=== PATIENT | female | born 1975 | race American Indian/Alaskan Native ===

== ENCOUNTER 2016-11-23 21:51 | Emergency (ER) | payer BC ==
[2016-11-23 23:29] LABS: Hematocrit 37.3 % (30.3-42.9); Hemoglobin 12.1 gm/dl (10.1-14.3); Mean Corpuscular HGB Conc 33 % (30-34); Mean Corpuscular Volume 71 fl (79-97); Platelet Count 279 K/mm3 (140-440); Red Blood Count 5.24 M/mm3 (3.65-5.03); Red Cell Distribution Width 18.3 % (13.2-15.2); White Blood Count 6.1 K/mm3 (4.5-11.0)
[2016-11-23 23:37] LABS: Mean Corpuscular Hemoglobin 23 pg (28-32)
[2016-11-23 23:45] LABS: Anion Gap 17 mmol/L; BUN/Creatinine Ratio 16.25; Blood Urea Nitrogen 13 mg/dL (7-17); Calcium 8.9 mg/dL (8.4-10.2); Carbon Dioxide 23 mmol/L (22-30); Glucose 331 mg/dL (65-100); Potassium 3.7 mmol/L (3.6-5.0); Sodium 138 mmol/L (137-145)
[2016-11-24] MEDS ORDERED: MOTRIN PO ONE (00:30)
--- NOTE | 2016-11-24 00:31 | Emergency Department Report ---
ED General Adult HPI - General Chief complaint: High BP Stated complaint: SINUSES Time Seen by Provider: 11/24/16 00:19 Source: patient, RN notes reviewed, old records reviewed Mode of arrival: Ambulatory Limitations: No Limitations - History of Present Illness Initial comments: This is a 41-year-old female. She is previously unknown to me. She reports a past medical history of hypertension and hypothyroidism. She takes Norvasc, Synthroid, triamterene. She reports her primary care doctor is at the [facility]. She presents to the ER with 5-7 days of facial fullness, and congestion, runny nose. There is no headache, neck pain, chest pain, abdominal pain or shortness of breath. There is no vomiting or diaphoresis. She endorses compliance with her medications. No other complaints. -: Gradual Location: face Quality: aching Consistency: intermittent Improves with: rest Worsens with: movement Associated Symptoms: denies: confusion, chest pain, diaphoresis, fever/chills, loss of appetite, malaise, nausea/vomiting, shortness of breath, syncope, weakness - Related Data Previous Rx's Medication Instructions Recorded Last Taken Type HYDROcodone/APAP 5-325 [[place] 1 each PO Q6HR PRN #7 tablet 04/30/14 Unknown Rx 5-325 mg TAB] Levofloxacin [Levaquin] 500 mg PO QDAY #7 tablet 04/30/14 Unknown Rx Fluticasone [Flonase] 1 spray NS QDAY #1 bottle 11/24/16 Unknown Rx Ibuprofen [Motrin] 600 mg PO Q8H PRN #30 tablet 11/24/16 Unknown Rx Loratadine [Claritin] 10 mg PO DAILY #30 tablet 11/24/16 Unknown Rx Allergies Allergy/AdvReac Type Severity Reaction Status Date / Time Sulfa (Sulfonamide Allergy Hives Verified 04/30/14 13:11 Antibiotics) ED Review of Systems ROS: Stated complaint: SINUSES Other details as noted in HPI ED Past Medical Hx - Past Medical History Hx Hypertension: Yes Additional medical history: hypothyroid - Surgical History Past Surgical History?: Yes Additional Surgical History: - Social History Smoking Status: Never Smoker Substance Use Type: None - Medications Home Medications: Home Medications Medication Instructions Recorded Confirmed Last Taken Type HYDROcodone/APAP 5-325 [[place] 1 each PO Q6HR PRN #7 tablet 04/30/14 Unknown Rx 5-325 mg TAB] Levofloxacin [Levaquin] 500 mg PO QDAY #7 tablet 04/30/14 Unknown Rx Fluticasone [Flonase] 1 spray NS QDAY #1 bottle 11/24/16 Unknown Rx Ibuprofen [Motrin] 600 mg PO Q8H PRN #30 tablet 11/24/16 Unknown Rx Loratadine [Claritin] 10 mg PO DAILY #30 tablet 11/24/16 Unknown Rx ED Physical Exam - General Limitations: No Limitations General appearance: alert, in no apparent distress - Head Head exam: Present: atraumatic, normocephalic - Eye Eye exam: Present: normal appearance, PERRL, EOMI. Absent: nystagmus - ENT ENT exam: Present: normal exam, normal orophraynx, mucous membranes moist, TM's normal bilaterally, normal external ear exam - Neck Neck exam: Present: normal inspection, full ROM. Absent: tenderness, meningismus - Respiratory Respiratory exam: Present: normal lung sounds bilaterally. Absent: respiratory distress, wheezes, rales, rhonchi, stridor, chest wall tenderness, accessory muscle use, decreased breath sounds, prolonged expiratory - Cardiovascular Cardiovascular Exam: Present: regular rate, normal rhythm, normal heart sounds. Absent: systolic murmur, diastolic murmur, rubs, gallop - GI/Abdominal GI/Abdominal exam: Present: soft, normal bowel sounds. Absent: distended, tenderness, guarding, rebound, rigid, pulsatile mass - Extremities Exam Extremities exam: Present: normal inspection, full ROM. Absent: calf tenderness - Back Exam Back exam: Present: normal inspection. Absent: tenderness, paraspinal tenderness, vertebral tenderness - Neurological Exam Neurological exam: Present: alert, oriented X3, normal gait, other (Extraocular movements intact. Tongue midline. No facial droop. Facial sensation intact to light touch in the V1, V2, V3 distribution bilaterally. 5 and 5 strength in 4 extremities.. Sensation is intact to light touch in 4 extremities.). Absent : motor sensory deficit - Psychiatric Psychiatric exam: Present: normal affect, normal mood - Skin Skin exam: Present: warm, dry, intact, normal color. Absent: rash ED Course Vital Signs 11/23/16 11/24/16 22:27 00:36 Temperature 98.4 F 98.1 F Pulse Rate 96 H 84 Respiratory 16 16 Rate Blood Pressure 189/117 Blood Pressure 181/105 [Right] O2 Sat by Pulse 95 97 Oximetry ED Medical Decision Making - Lab Data Result diagrams: 11/23/16 23:05 11/23/16 23:05 Vital Signs 11/23/16 11/24/16 22:27 00:36 Temperature 98.4 F 98.1 F Pulse Rate 96 H 84 Respiratory 16 16 Rate Blood Pressure 189/117 Blood Pressure 181/105 [Right] O2 Sat by Pulse 95 97 Oximetry Labs 11/23/16 11/23/16 23:05 23:05 WBC 6.1 RBC 5.24 H Hgb 12.1 Hct 37.3 MCV 71 L MCH 23 L MCHC 33 RDW 18.3 H Plt Count 279 Seg Neutrophils % [employer] Sodium 138 Potassium 3.7 Chloride 102.0 Carbon Dioxide 23 Anion Gap 17 BUN 13 Creatinine 0.8 Estimated GFR > 60 BUN/Creatinine Ratio 16.25 Glucose 331 H Calcium 8.9 Troponin T < 0.010 - EKG Data -: EKG Interpreted by Me - EKG Data 11/24/16 00:38 normal sinus, 93 bpm, normal axis, QTC 489 ms, abnormal EKG, poor R-wave progression, not morphologically consistent with STEMI, nonspecific changes when compared to prior EKG from 2013. - Medical Decision Making Differential diagnosis: Sinusitis, hypertension, hyperglycemia, poorly controlled blood pressure Assessment and plan: 41-year-old female with almost a week of facial fullness. She is afebrile with reassuring vital signs with the exception of hypertension. She does not have chest pain, shortness of breath, nausea, vomiting or diaphoresis, and she has a normal neurologic examination. She is found incidentally to have asymptomatic hypertension and hyperglycemia. As per the [employer] clinical policy on asymptomatic hypertension: 1. Are ED blood pressure readings accurate and reliable for screening asymptomatic patients for hypertension? Level A recommendations. None specified. Level B recommendations. If blood pressure measurements are persistently elevated with a systolic blood pressure greater than 140 mm Hg or diastolic blood pressure greater than 90 mm Hg, the patient should be referred for follow- up of possible hypertension and blood pressure management. Level C recommendations. Patients with a single elevated blood pressure reading may require further screening for hypertension in the outpatient setting. 2. Do asymptomatic patients with elevated blood pressures benefit from rapid lowering of their blood pressure? Level A recommendations. None specified. Level B recommendations. (1) Initiating treatment for asymptomatic hypertension in the ED is not necessary when patients have follow-up; (2) Rapidly lowering blood pressure in asymptomatic patients in the ED is unnecessary and may be harmful in some patients; (3) When ED treatment for asymptomatic hypertension is initiated, blood pressure management should attempt to gradually lower blood pressure and should not be expected to be normalized during the initial ED visit. Level C recommendations. None specified. This is most likely a chronic problem, and the patient will not medically benefit from acute intervention. Under similar note, the patient's hyperglycemia does not require acute intervention as she does not have anion gap acidosis. She felt improved after ibuprofen, and she is instructed to follow-up with an outpatient primary care doctor for her chronic medical conditions. Troponin is sent prior to my evaluation, but given the patient's history and physical, I don't believe the patient requires evaluation for acute coronary syndrome. On a similar note, her EKG was obtained in triage secondary to her a medic hypertension. Her EKG is abnormal, but as she is not having symptoms, she is suitable follow-up and outpatient primary care doctor or [employer] for this. Critical care attestation.: If time is entered above; I have spent that time in minutes in the direct care of this critically ill patient, excluding procedure time. ED Disposition Clinical Impression: Facial pressure, Elevated blood pressure reading, Hyperglycemia Disposition: DC-01 TO HOME OR SELFCARE Is pt being admited?: No Does the pt Need Aspirin: No Condition: Stable Additional Instructions: Take the medications as directed and needed. Please follow up with her primary care doctor or [employer] for hypertension, elevated blood pressure. Follow up within the next 2 weeks. Please note that complications of hypertension, elevated blood pressure includes stroke, heart attack, disability, , paralysis, loss of quality of life. Follow-up with your primary care doctor for elevated blood sugar. Take the medications as directed. Return to the ER right away with fevers, chills, chest pain, shortness of breath, nausea, vomiting, confusion, inability to tolerate liquid feeds. Referrals: PRIMARY AKIRA, [Primary Care Provider] - 3-5 Days VLADIMIR NOLAN MD [Staff Physician] - 3-5 Days ANTONIA ROCHA MD [Staff Physician] - 3-5 Days
[2016-11-24 00:38] VITALS: BP 181/105
[2016-11-24 01:39] LABS: Basophils % (Manual) 0 % (0.0-1.8); Blastocytes % (Manual) 0 %; Diff Status Complete; Hypochromasia 1+
== END 2016-11-24 00:45 | disposition home or self-care (01) ==
LOC: ED 21:51
DX: I10 Essential (primary) hypertension (principal); R73.9 Hyperglycemia, unspecified
CPT/HCPCS: 36415; 80048; 84484; 85007; 85025; 93005; 93010

== ENCOUNTER 2018-11-03 17:40 | Emergency (ER) | payer BC ==
[2018-11-03 18:27] VITALS: BP 142/93
--- NOTE | 2018-11-03 22:49 | Emergency Department Report ---
ED General Adult HPI - General Chief complaint: Sore Throat Stated complaint: SORE THROAT/SINUS Time Seen by Provider: 11/03/18 21:00 Source: patient Mode of arrival: Ambulatory Limitations: No Limitations - History of Present Illness Initial comments: Patient is a 43 yo AA female with a h/o NIDDM and HTN who presents to the ED with c/o acute onset persistent nasal and sinus congestion, dry cough, with frontal sinus pressure and headache x 3 days. Patient states that most of her family members have had similar symptoms. Patient denies dyspnea, chest pain, dizziness, fever, abdominal pain, nausea, vomiting, diarrhea or dysuria. MD Complaint: sore throat, nasal and sinus congestion -: Sudden, days(s) (3) Location: head Radiation: non-radiation Severity scale (0 -10): 6 Quality: aching Consistency: constant Improves with: none Worsens with: none Associated Symptoms: cough, headaches. denies: confusion, chest pain, fever/chills, malaise, nausea/vomiting, rash, seizure, shortness of breath, syncope, weakness Treatments Prior to Arrival: none - Related Data Previous Rx's Medication Instructions Recorded Last Taken Type HYDROcodone/APAP 5-325 [[place] 1 each PO Q6HR PRN #7 tablet 04/30/14 Unknown Rx 5-325 mg TAB] levoFLOXacin [Levaquin] 500 mg PO QDAY #7 tablet 04/30/14 Unknown Rx Fluticasone [Flonase] 1 spray NS QDAY #1 bottle 11/24/16 Unknown Rx Ibuprofen [Motrin] 600 mg PO Q8H PRN #30 tablet 11/24/16 Unknown Rx Loratadine [Claritin] 10 mg PO DAILY #30 tablet 11/24/16 Unknown Rx Ibuprofen [Motrin] 800 mg PO Q8HR PRN #12 tablet 04/13/18 Unknown Rx cephALEXin [Keflex] 500 mg PO Q8HR 7 Days #14 cap 04/13/18 Unknown Rx Cetirizine HCl [ZyrTEC 10mg cap] 10 mg PO DAILY #30 capsule 11/03/18 Unknown Rx Fluticasone [Flonase] 1 spray NS QDAY #1 bottle 11/03/18 Unknown Rx Ibuprofen [Motrin] 800 mg PO Q8HR PRN #20 tablet 11/03/18 Unknown Rx Penicillin V Potassium 500 mg PO Q6H #40 tablet 11/03/18 Unknown Rx Allergies Allergy/AdvReac Type Severity Reaction Status Date / Time Sulfa (Sulfonamide Allergy Hives Verified 04/30/14 13:11 Antibiotics) ED Review of Systems ROS: Stated complaint: SORE THROAT/SINUS Other details as noted in HPI Constitutional: no symptoms reported. denies: chills, fever Eyes: denies: eye pain, eye discharge, vision change ENT: throat pain, congestion. denies: ear pain Respiratory: no symptoms reported. denies: cough, shortness of breath, SOB with exertion, SOB at rest, wheezing Cardiovascular: denies: chest pain, palpitations, edema Endocrine: no symptoms reported Gastrointestinal: denies: abdominal pain, nausea, diarrhea Genitourinary: denies: urgency, dysuria, discharge Musculoskeletal: denies: back pain, joint swelling, arthralgia Skin: denies: rash, lesions Neurological: denies: headache, weakness, paresthesias Psychiatric: denies: anxiety, depression Hematological/Lymphatic: denies: easy bleeding, easy bruising ED Past Medical Hx - Past Medical History Previous Medical History?: Yes Hx Hypertension: Yes Hx Diabetes: Yes Additional medical history: hypothyroid, Report pre diabetes - Surgical History Past Surgical History?: Yes Additional Surgical History: - Social History Smoking Status: Never Smoker Substance Use Type: None - Medications Home Medications: Home Medications Medication Instructions Recorded Confirmed Last Taken Type HYDROcodone/APAP 5-325 [[place] 1 each PO Q6HR PRN #7 tablet 04/30/14 Unknown Rx 5-325 mg TAB] levoFLOXacin [Levaquin] 500 mg PO QDAY #7 tablet 04/30/14 Unknown Rx Fluticasone [Flonase] 1 spray NS QDAY #1 bottle 11/24/16 Unknown Rx Ibuprofen [Motrin] 600 mg PO Q8H PRN #30 tablet 11/24/16 Unknown Rx Loratadine [Claritin] 10 mg PO DAILY #30 tablet 11/24/16 Unknown Rx Ibuprofen [Motrin] 800 mg PO Q8HR PRN #12 tablet 04/13/18 Unknown Rx cephALEXin [Keflex] 500 mg PO Q8HR 7 Days #14 cap 04/13/18 Unknown Rx Cetirizine HCl [ZyrTEC 10mg cap] 10 mg PO DAILY #30 capsule 11/03/18 Unknown Rx Fluticasone [Flonase] 1 spray NS QDAY #1 bottle 11/03/18 Unknown Rx Ibuprofen [Motrin] 800 mg PO Q8HR PRN #20 tablet 11/03/18 Unknown Rx Penicillin V Potassium 500 mg PO Q6H #40 tablet 11/03/18 Unknown Rx ED Physical Exam - General Limitations: No Limitations General appearance: alert, in no apparent distress - Head Head exam: Present: atraumatic, normocephalic, normal inspection - Eye Eye exam: Present: normal appearance, PERRL, EOMI. Absent: scleral icterus Pupils: Present: normal accommodation - ENT ENT exam: Present: normal exam, normal orophraynx, mucous membranes moist, TM's normal bilaterally, normal external ear exam, other (Grossly congested nasal passages; tenderness on maxillary sinuses) - Neck Neck exam: Present: normal inspection, full ROM - Respiratory Respiratory exam: Present: normal lung sounds bilaterally. Absent: respiratory distress, wheezes, rales, rhonchi, chest wall tenderness, accessory muscle use, decreased breath sounds, prolonged expiratory - Cardiovascular Cardiovascular Exam: Present: normal rhythm, tachycardia, normal heart sounds. Absent: systolic murmur, diastolic murmur, rubs, gallop - GI/Abdominal GI/Abdominal exam: Present: soft, normal bowel sounds. Absent: distended, tenderness, guarding, hyperactive bowel sounds, hypoactive bowel sounds, organomegaly, mass - Rectal Rectal exam: Present: deferred - Extremities Exam Extremities exam: Present: normal inspection, full ROM, normal capillary refill - Back Exam Back exam: Present: normal inspection, full ROM. Absent: tenderness, CVA tenderness (R), CVA tenderness (L), muscle spasm, paraspinal tenderness - Neurological Exam Neurological exam: Present: alert, oriented X3, CN II-XII intact, normal gait, reflexes normal - Psychiatric Psychiatric exam: Present: normal affect, normal mood - Skin Skin exam: Present: warm, dry, intact, normal color. Absent: rash ED Course Vital Signs 11/03/18 18:26 Temperature 98.9 F Pulse Rate 104 H Respiratory 16 Rate Blood Pressure 142/93 O2 Sat by Pulse 96 Oximetry - Reevaluation(s) Reevaluation #1: 11/03/18 22:55 Patient is alert and oriented 3 and is not in distress. Patient was discharged home on medications and empirically treated for acute maxillary sinusitis. Patient advised to follow-up with her primary care physician in 7-10 days for reevaluation or return to the ED immediately if symptoms get worse. ED Medical Decision Making - Medical Decision Making Patient is alert and oriented 3 and is not in distress. Patient was discharged home on medications and empirically treated for acute maxillary sinusitis. Patient advised to follow-up with her primary care physician in 7-10 days for reevaluation or return to the ED immediately if symptoms get worse. - Differential Diagnosis acute maxillary sinusitis; acuet URI; Acute pharyngitis Critical care attestation.: If time is entered above; I have spent that time in minutes in the direct care of this critically ill patient, excluding procedure time. ED Disposition Clinical Impression: Acute upper respiratory infection Acute pharyngitis Qualifiers: Pharyngitis/tonsillitis etiology: unspecified etiology Qualified Code(s): J02.9 - Acute pharyngitis, unspecified Acute maxillary sinusitis Qualifiers: Recurrence: non-recurrent Qualified Code(s): J01.00 - Acute maxillary s inusitis, unspecified Disposition: DC-01 TO HOME OR SELFCARE Is pt being admited?: No Does the pt Need Aspirin: No Condition: Stable Instructions: Sinusitis (ED), Upper Respiratory Infection (ED) Additional Instructions: TAKE MEDICATIONS WITH FOOD, DRINK PLENTY OF FLUIDS AND FOLLOW UP WITH YOUR PRIMARY CARE PHYSICIAN IN 7-10 DAYS. RETURN TO THE ED IMMEDIATELY IF SYMPTOMS GET WORSE. Prescriptions: Fluticasone [Flonase] 1 spray NS QDAY #1 bottle Ibuprofen [Motrin] 800 mg PO Q8HR PRN #20 tablet PRN Reason: Pain , Severe (7-10) Penicillin V Potassium 500 mg PO Q6H #40 tablet Cetirizine HCl [ZyrTEC 10mg cap] 10 mg PO DAILY #30 capsule Referrals: [facility] [Outside] - 3-5 Days Time of Disposition: 22:48 Print Language: MOHAWK
== END 2018-11-03 22:57 | disposition home or self-care (01) ==
LOC: ED 17:40
DX: J06.9 Acute upper respiratory infection, unspecified (principal); J20.9 Acute bronchitis, unspecified; J01.00 Acute maxillary sinusitis, unspecified; I10 Essential (primary) hypertension; E11.9 Type 2 diabetes mellitus without complications; E03.9 Hypothyroidism, unspecified; Z88.2 Allergy status to sulfonamides; Z79.1 Long term (current) use of non-steroidal anti-inflammatories (NSAID); Z79.899 Other long term (current) drug therapy
CPT/HCPCS: 99282

== ENCOUNTER 2019-02-09 18:08 | Emergency (ER) | payer BC, OTHER ==
--- NOTE | 2019-02-09 18:43 | Emergency Department Report ---
Blank Doc - Documentation Documentation: 43-year-old female that presents with URI symptoms. Patient also stated has not been taking her B/P medications. Denies any headache or any other symptoms. This initial assessment/diagnostic orders/clinical plan/treatment(s) is/are subject to change based on patient's health status, clinical progression and re- assessment by fellow clinical providers in the ED. Further treatment and workup at subsequent clinical providers discretion. Patient/guardians urged not to elope from the ED as their condition may be serious if not clinically assessed and managed. Initial orders include: 1- Patient sent to [facility] for further evaluation and treatment 2- labs 3- CXR
[2019-02-09 19:41] LABS: Basophils # (Auto) 0.1 K/mm3 (0.0-0.1); Basophils % (Auto) 1.6 % (0.0-1.8); Eosinophils # (Auto) 0.2 K/mm3 (0.0-0.4); Eosinophils % (Auto) 3.4 % (0.0-4.3); Hemoglobin 8.8 gm/dl (10.1-14.3); Lymphocytes # (Auto) 2.3 K/mm3 (1.2-5.4); Lymphocytes % (Auto) 36.6 % (13.4-35.0); Mean Corpuscular HGB Conc 31 % (30-34); Monocytes # (Auto) 0.6 K/mm3 (0.0-0.8); Platelet Count 343 K/mm3 (140-440); Red Blood Count 4.47 M/mm3 (3.65-5.03); Red Cell Distribution Width 16.9 % (13.2-15.2)
[2019-02-09 19:52] LABS: BUN/Creatinine Ratio 20; Blood Urea Nitrogen 16 mg/dL (7-17); Hemolysis Index 1
[2019-02-09 19:57] LABS: Mean Corpuscular Volume 63 fl (79-97)
--- NOTE | 2019-02-09 20:01 | XRay Report ---
CHEST 2 VIEWS INDICATION / CLINICAL INFORMATION: cough. COMPARISON: 04/30/2014 FINDINGS: SUPPORT DEVICES: None. HEART / MEDIASTINUM: No significant abnormality. LUNGS / PLEURA: No significant pulmonary or pleural abnormality. .No pneumothorax. ADDITIONAL FINDINGS: No significant additional findings. IMPRESSION: 1. No acute findings. Signer Name: Srinivasa Orozco MD Signed: 02/09/2019 7:57 PM Workstation Name: [id number]
[2019-02-09] MEDS ORDERED: ASPIRIN 325 MG TAB PO ONE (20:47)
--- NOTE | 2019-02-09 20:50 | Emergency Department Report ---
- General Chief Complaint: Chest Pain Stated Complaint: COUGH/RUNNY NOISE/VOMITING Time Seen by Provider: 02/09/19 18:42 Source: patient Mode of arrival: Ambulatory Limitations: No Limitations - History of Present Illness Initial Comments: Patient is a 43-year-old -Mosoth[place] female with a history of [id number]-[id number] diabetes, hypertension and hypothyroidism and who is noncompliant with medications presents to the ED with complaint of acute onset persistent nasal and sinus congestion, frontal sinus pressure, sore throat, dry cough and pleuritic chest pain with intermittent shortness of breath for the last 2 or 3 months, worse in the last 1 week. Patient states that she stopped taking some of her blood pressure medications and diabetes medication about one month ago but that her symptoms of worsened. Patient denies fever, chills, nausea, vomiting, dizziness, syncope, palpitations, abdominal pain, diarrhea, dysuria, urinary frequency and urgency or loss of consciousness or dizziness. MD Complaint: cough, sore throat, rhinorrhea, nasal congestion -: Sudden, month(s) (3) Severity: moderate Severity scale (0 -10): 5 Quality: sharp, aching Consistency: constant Improves With: nothing Worsens With: nothing Associated Symptoms: denies other symptoms, headache, rhinorrhea, nasal congestion, sore throat, cough, chest pain. denies: fever, chills, myalgias, diaphoresis, abdominal pain, nausea, vomiting, diarrhea, dysuria, confusion, right sweats, weight loss, epistaxis, hoarseness, ear pain, other Treatments Prior to Arrival: none - Related Data Previous Rx's Medication Instructions Recorded Last Taken Type HYDROcodone/APAP 5-325 [[place] 1 each PO Q6HR PRN #7 tablet 04/30/14 Unknown Rx 5-325 mg TAB] Fluticasone [Flonase] 1 spray NS QDAY #1 bottle 11/24/16 Unknown Rx Loratadine [Claritin] 10 mg PO DAILY #30 tablet 11/24/16 Unknown Rx Ibuprofen [Motrin] 800 mg PO Q8HR PRN #12 tablet 04/13/18 Unknown Rx cephALEXin [Keflex] 500 mg PO Q8HR 7 Days #14 cap 04/13/18 Unknown Rx Fluticasone [Flonase] 1 spray NS QDAY #1 bottle 11/03/18 Unknown Rx Ibuprofen [Motrin] 800 mg PO Q8HR PRN #20 tablet 11/03/18 Unknown Rx Penicillin V Potassium 500 mg PO Q6H #40 tablet 11/03/18 Unknown Rx Benzonatate [Tessalon Perles] 100 mg PO Q8HR #30 capsule 02/09/19 Unknown Rx Cetirizine HCl [ZyrTEC 10mg cap] 10 mg PO DAILY #30 capsule 02/09/19 Unknown Rx Ibuprofen [Motrin 600 MG tab] 600 mg PO Q8H PRN #30 tablet 02/09/19 Unknown Rx levoFLOXacin [Levaquin TAB] 500 mg PO QDAY #10 tablet 02/09/19 Unknown Rx Allergies Allergy/AdvReac Type Severity Reaction Status Date / Time Sulfa (Sulfonamide Allergy Hives Verified 04/30/14 13:11 Antibiotics) ED Review of Systems ROS: Stated complaint: COUGH/RUNNY NOISE/VOMITING Other details as noted in HPI Constitutional: denies: chills, fever Eyes: denies: eye pain, eye discharge, vision change ENT: throat pain, congestion. denies: ear pain Respiratory: cough, shortness of breath. denies: SOB with exertion, SOB at rest, wheezing Cardiovascular: chest pain (pleuritic chest pain). denies: palpitations Endocrine: no symptoms reported Gastrointestinal: denies: abdominal pain, nausea, diarrhea Genitourinary: denies: urgency, dysuria, discharge Musculoskeletal: denies: back pain, joint swelling, arthralgia Skin: denies: rash, lesions Neurological: headache. denies: weakness, paresthesias Psychiatric: denies: anxiety, depression Hematological/Lymphatic: denies: easy bleeding, easy bruising ED Past Medical Hx - Past Medical History Previous Medical History?: Yes Hx Hypertension: Yes Hx Diabetes: Yes Additional medical history: hypothyroid, Report pre diabetes - Surgical History Past Surgical History?: Yes Additional Surgical History: - Social History Smoking Status: Never Smoker Substance Use Type: Alcohol - Medications Home Medications: Home Medications Medication Instructions Recorded Confirmed Last Taken Type HYDROcodone/APAP 5-325 [[place] 1 each PO Q6HR PRN #7 tablet 04/30/14 Unknown Rx 5-325 mg TAB] Fluticasone [Flonase] 1 spray NS QDAY #1 bottle 11/24/16 Unknown Rx Loratadine [Claritin] 10 mg PO DAILY #30 tablet 11/24/16 Unknown Rx Ibuprofen [Motrin] 800 mg PO Q8HR PRN #12 tablet 04/13/18 Unknown Rx cephALEXin [Keflex] 500 mg PO Q8HR 7 Days #14 cap 04/13/18 Unknown Rx Fluticasone [Flonase] 1 spray NS QDAY #1 bottle 11/03/18 Unknown Rx Ibuprofen [Motrin] 800 mg PO Q8HR PRN #20 tablet 11/03/18 Unknown Rx Penicillin V Potassium 500 mg PO Q6H #40 tablet 11/03/18 Unknown Rx Benzonatate [Tessalon Perles] 100 mg PO Q8HR #30 capsule 02/09/19 Unknown Rx Cetirizine HCl [ZyrTEC 10mg cap] 10 mg PO DAILY #30 capsule 02/09/19 Unknown Rx Ibuprofen [Motrin 600 MG tab] 600 mg PO Q8H PRN #30 tablet 02/09/19 Unknown Rx levoFLOXacin [Levaquin TAB] 500 mg PO QDAY #10 tablet 02/09/19 Unknown Rx ED Physical Exam - General Limitations: No Limitations General appearance: alert, in no apparent distress - Head Head exam: Present: atraumatic, normocephalic, normal inspection - Eye Eye exam: Present: normal appearance, PERRL, EOMI Pupils: Present: normal accommodation - ENT ENT exam: Present: normal orophraynx, mucous membranes moist, other (grossly congested nasal passages;Frontal sinus tenderness) - Neck Neck exam: Present: normal inspection, full ROM. Absent: tenderness, lymphadenopathy - Respiratory Respiratory exam: Present: normal lung sounds bilaterally. Absent: respiratory distress, wheezes, rhonchi, chest wall tenderness, accessory muscle use, prolonged expiratory - Cardiovascular Cardiovascular Exam: Present: normal rhythm, tachycardia. Absent: systolic murmur, diastolic murmur, rubs, gallop - GI/Abdominal GI/Abdominal exam: Present: soft, normal bowel sounds. Absent: tenderness, guarding, rebound, hyperactive bowel sounds, hypoactive bowel sounds, organomegaly - Extremities Exam Extremities exam: Present: normal inspection, full ROM, normal capillary refill - Back Exam Back exam: Present: normal inspection, full ROM. Absent: tenderness, CVA tenderness (L), muscle spasm, paraspinal tenderness, vertebral tenderness - Neurological Exam Neurological exam: Present: alert, oriented X3, CN II-XII intact, normal gait, reflexes normal - Psychiatric Psychiatric exam: Present: normal affect, normal mood - Skin Skin exam: Present: warm, dry, intact, normal color. Absent: rash ED Course Vital Signs 02/09/19 18:44 Temperature 98.7 F Pulse Rate 104 H Respiratory 18 Rate Blood Pressure 227/124 O2 Sat by Pulse 99 Oximetry - Reevaluation(s) Reevaluation #1: 02/09/19 23:24 This is a 43-year-old female who presented to the ED with nasal and sinus congestion, dry cough, pleuritic chest pain and frontal sinus pressure and headache for the last 2-3 months. Patient also states that she has not been taking her blood pressure medications and therefore blood pressure has been high. In the ED, patient is alert and oriented 3 and is not in distress and is tachycardic, and hypertensive in triage. Lab test results were reviewed and are all nonactionable including initial and repeat troponin. Chest x-ray shows no acute cardiopulmonary abnormalities. On reevaluation, patient stated hypertensive, and was advised to take her regular home medications in the ED to help reduce her blood pressure. Patient was advised to consistently take her blood pressure medications and most makeup on albuterol indecision. Taking blood pressure medications. Patient was advised of the dangers of uncontrolled hypertension such as stroke, renal failure or acute coronary syndrome. Patient was discharged home on medications and advised to be compliant with all her medications including diabetic and hypertension medications. Patient was advised to follow-up with her primary care physician in 5-7 days for reevaluation. Patient was also advised to return to the ED immediately if symptoms get worse. ED Medical Decision Making - Lab Data Result diagrams: 02/09/19 19:32 02/09/19 19:32 - Radiology Data Radiology results: report reviewed, image reviewed Chest x-ray shows no acute get a pulmonary abnormalities or pneumonitis - Medical Decision Making This is a 43-year-old female who presented to the ED with nasal and sinus congestion, dry cough, pleuritic chest pain and frontal sinus pressure and headache for the last 2-3 months. Patient also states that she has not been taking her blood pressure medications and therefore blood pressure has been high. In the ED, patient is alert and oriented 3 and is not in distress and is tachycardic, and hypertensive in triage. Lab test results were reviewed and are all nonactionable including initial and repeat troponin. Chest x-ray shows no acute cardiopulmonary abnormalities. On reevaluation, patient stated hypertensive, and was advised to take her regular home medications in the ED to help reduce her blood pressure. Patient was advised to consistently take her blood pressure medications and most makeup on albuterol indecision. Taking blood pressure medications. Patient was advised of the dangers of uncontrolled hypertension such as stroke, renal failure or acute coronary syndrome. Patient was discharged home on medications and advised to be compliant with all her medications including diabetic and hypertension medications. Patient was advised to follow-up with her primary care physician in 5-7 days for reevaluation. Patient was also advised to return to the ED immediately if symptoms get worse. - Differential Diagnosis acute URI; Sinusitis; acute bronchitis; Pneumonia; uncontrolled HTN Critical care attestation.: If time is entered above; I have spent that time in minutes in the direct care of this critically ill patient, excluding procedure time. ED Disposition Clinical Impression: Acute upper respiratory infection, Uncontrolled stage 2 hypertension Acute bronchitis Qualifiers: Bronchitis organism: unspecified organism Qualified Code(s): J20.9 - Acute bronchitis, unspecified Disposition: DC-01 TO HOME OR SELFCARE Is pt being admited?: No Does the pt Need Aspirin: No Condition: Stable Instructions: Acute Bronchitis (ED), Hypertension (ED), Acute Bacterial Rhinos inusitis (ED) Additional Instructions: Take medications with food, drink plenty of fluids and follow-up with your primary care physician in 7-10 days for reevaluation. Return to the ED immediately if symptoms get worse. Prescriptions: levoFLOXacin [Levaquin TAB] 500 mg PO QDAY #10 tablet Ibuprofen [Motrin 600 MG tab] 600 mg PO Q8H PRN #30 tablet PRN Reason: Pain Benzonatate [Tessalon Perles] 100 mg PO Q8HR #30 capsule Cetirizine HCl [ZyrTEC 10mg cap] 10 mg PO DAILY #30 capsule Referrals: PRIMARY CARE, [Primary Care Provider] - 3-5 Days Forms: Work/School Release Form(ED) Time of Disposition: 23:28 Print Language: ALBANIAN
[2019-02-09 23:44] VITALS: BP 177/90
== END 2019-02-09 23:45 | disposition home or self-care (01) ==
LOC: ED 18:08
DX: J20.9 Acute bronchitis, unspecified (principal); J06.9 Acute upper respiratory infection, unspecified; I10 Essential (primary) hypertension; E11.9 Type 2 diabetes mellitus without complications; E03.9 Hypothyroidism, unspecified; Z79.899 Other long term (current) drug therapy; Z88.2 Allergy status to sulfonamides
CPT/HCPCS: 36415; 71046; 80048; 83880; 84484; 85025; 85379

== ENCOUNTER 2019-09-07 13:19 | Emergency (ER) | payer SELFPAY ==
[2019-09-07 16:09] LABS: Bacteria,Urine 1+ /HPF (Negative); Bilirubin,Urine NEG (Negative); Blood,Urine SM (Negative); Color,Urine Yellow (Yellow); Hyaline Casts,Urine 2 /LPF; Mucus,Urine FEW /HPF; Urobilinogen,Urine < 2.0 mg/dL (<2.0)
[2019-09-07] MEDS ORDERED: hydrALAZINE 25 MG TAB PO ONE (16:13)
[2019-09-07] MEDS ORDERED: amLODIPine 5 MG TAB PO ONE (16:13)
[2019-09-07 16:19] LABS: HCG Qualitative,Urine Negative (Negative)
--- NOTE | 2019-09-07 16:26 | Emergency Department Report ---
ED General Adult HPI - General Chief complaint: Urogenital-Female Stated complaint: UTI/POSS PINK EYE/HIP PAIN Time Seen by Provider: 09/07/19 15:47 Source: patient Mode of arrival: Ambulatory Limitations: No Limitations - History of Present Illness Initial comments: Patient is a 44-year-old female who presents emergency room with complaints of left eye irritation that began approximately 3 to 4 days ago. She has associated watering, mucus drainage, crusting of the eyelashes. She denies anything getting into the eye. She denies any contact lens use. She denies anyone else with the same symptoms. Patient states that she is also had some mild dysuria for approximately a week and states that she just started using Monistat. She denies any abdominal pain, fever, nausea, vomiting, diarrhea, pelvic pain. She states that she is also had a knot to her right gluteal region that causes discomfort when she sits on it but otherwise has no other c omplaints, she is ambulatory, no drainage. She states that she is also been out of her blood pressure medication for 2 weeks. She states the pharmacy tried to contact her primary care doctor to receive refills but she has not yet gotten the refill and. She denies any symptoms related to her blood pressure. She states she takes hydralazine 50 mg once a day and amlodipine 10 mg once a day. - Related Data Previous Rx's Medication Instructions Recorded Last Taken Type HYDROcodone/APAP 5-325 [[place] 1 each PO Q6HR PRN #7 tablet 04/30/14 Unknown Rx 5-325 mg TAB] Fluticasone [Flonase] 1 spray NS QDAY #1 bottle 11/24/16 Unknown Rx Loratadine (Nf) [Claritin] 10 mg PO DAILY #30 tablet 11/24/16 Unknown Rx Ibuprofen [Motrin] 800 mg PO Q8HR PRN #12 tablet 04/13/18 Unknown Rx cephALEXin [Keflex] 500 mg PO Q8HR 7 Days #14 cap 04/13/18 Unknown Rx Fluticasone [Flonase] 1 spray NS QDAY #1 bottle 11/03/18 Unknown Rx Ibuprofen [Motrin] 800 mg PO Q8HR PRN #20 tablet 11/03/18 Unknown Rx Penicillin V Potassium 500 mg PO Q6H #40 tablet 11/03/18 Unknown Rx Benzonatate [Tessalon Perles] 100 mg PO Q8HR #30 capsule 02/09/19 Unknown Rx Cetirizine HCl [ZyrTEC 10mg cap] 10 mg PO DAILY #30 capsule 02/09/19 Unknown Rx Ibuprofen [Motrin 600 MG tab] 600 mg PO Q8H PRN #30 tablet 02/09/19 Unknown Rx levoFLOXacin [Levaquin TAB] 500 mg PO QDAY #10 tablet 02/09/19 Unknown Rx Fluconazole [Diflucan TAB] 150 mg PO ONCE #1 tablet 09/07/19 Unknown Rx Hydralazine HCl 50 mg PO DAILY #30 tablet 09/07/19 Unknown Rx Polymyxin B Sulf/Trimethoprim 1 drop OS Q3HR 7 Days #1 drops 09/07/19 Unknown Rx [Polytrim Eye Drops 08840fnpwb/0.1%] amLODIPine 10 mg PO DAILY #30 tab 09/07/19 Unknown Rx cephALEXin [Keflex] 500 mg PO BID 7 Days #14 cap 09/07/19 Unknown Rx Allergies Allergy/AdvReac Type Severity Reaction Status Date / Time Sulfa (Sulfonamide Allergy Hives Verified 04/30/14 13:11 Antibiotics) ED Review of Systems ROS: Stated complaint: UTI/POSS PINK EYE/HIP PAIN Other details as noted in HPI Comment: All other systems reviewed and negative ED Past Medical Hx - Past Medical History Previous Medical History?: Yes Hx Hypertension: Yes Hx Diabetes: Yes Additional medical history: hypothyroid, Report pre diabetes - Surgical History Past Surgical History?: Yes Additional Surgical History: - Social History Smoking Status: Never Smoker Substance Use Type: None - Medications Home Medications: Home Medications Medication Instructions Recorded Confirmed Last Taken Type HYDROcodone/APAP 5-325 [[place] 1 each PO Q6HR PRN #7 tablet 04/30/14 Unknown Rx 5-325 mg TAB] Fluticasone [Flonase] 1 spray NS QDAY #1 bottle 11/24/16 Unknown Rx Loratadine (Nf) [Claritin] 10 mg PO DAILY #30 tablet 11/24/16 Unknown Rx Ibuprofen [Motrin] 800 mg PO Q8HR PRN #12 tablet 04/13/18 Unknown Rx cephALEXin [Keflex] 500 mg PO Q8HR 7 Days #14 cap 04/13/18 Unknown Rx Fluticasone [Flonase] 1 spray NS QDAY #1 bottle 11/03/18 Unknown Rx Ibuprofen [Motrin] 800 mg PO Q8HR PRN #20 tablet 11/03/18 Unknown Rx Penicillin V Potassium 500 mg PO Q6H #40 tablet 11/03/18 Unknown Rx Benzonatate [Tessalon Perles] 100 mg PO Q8HR #30 capsule 02/09/19 Unknown Rx Cetirizine HCl [ZyrTEC 10mg cap] 10 mg PO DAILY #30 capsule 02/09/19 Unknown Rx Ibuprofen [Motrin 600 MG tab] 600 mg PO Q8H PRN #30 tablet 02/09/19 Unknown Rx levoFLOXacin [Levaquin TAB] 500 mg PO QDAY #10 tablet 02/09/19 Unknown Rx Fluconazole [Diflucan TAB] 150 mg PO ONCE #1 tablet 09/07/19 Unknown Rx Hydralazine HCl 50 mg PO DAILY #30 tablet 09/07/19 Unknown Rx Polymyxin B Sulf/Trimethoprim 1 drop OS Q3HR 7 Days #1 drops 09/07/19 Unknown Rx [Polytrim Eye Drops [id number]/0.1%] amLODIPine 10 mg PO DAILY #30 tab 09/07/19 Unknown Rx cephALEXin [Keflex] 500 mg PO BID 7 Days #14 cap 09/07/19 Unknown Rx ED Physical Exam - General Limitations: No Limitations General appearance: alert, in no apparent distress - Head Head exam: Present: atraumatic, normocephalic - Eye Eye exam: Present: PERRL, EOMI, conjunctival injection (left), other (no pain with EOM). Absent: periorbital swelling, periorbital tenderness - ENT ENT exam: Present: mucous membranes moist - Extremities Exam Extremities exam: Present: other (no obvious lump appreciated to the right gluteal region, no abscess, no signs of infection, campus coordinator: NIECY Elena) - Neurological Exam Neurological exam: Present: alert, oriented X3 - Psychiatric Psychiatric exam: Present: normal affect, normal mood - Skin Skin exam: Present: warm, dry, intact ED Course Vital Signs 09/07/19 09/07/19 09/07/19 13:20 16:59 17:31 Temperature 98.4 F Pulse Rate 97 H 97 H 92 H Respiratory 18 16 Rate Blood Pressure 215/118 215/118 Blood Pressure 193/103 [Left] O2 Sat by Pulse 98 98 Oximetry ED Medical Decision Making - Lab Data Lab Results 09/07/19 Range/Units 15:57 Urine Color Yellow (Yellow) Urine Turbidity Cloudy (Clear) Urine pH 6.0 (5.0-7.0) Ur Specific [place] 1.017 (1.003-1.030) Urine Protein 30 mg/dl (Negative) mg/dL Urine Glucose (UA) Neg (Negative) mg/dL Urine Ketones Neg (Negative) mg/dL Urine Blood Sm (Negative) Urine Nitrite Neg (Negative) Urine Bilirubin Neg (Negative) Urine Urobilinogen < 2.0 (<2.0) mg/dL Ur Leukocyte Esterase Lg (Negative) Urine WBC (Auto) 10.0 H (0.0-6.0) /HPF Urine RBC (Auto) 20.0 (0.0-6.0) /HPF U Epithel Cells (Auto) 19.0 H (0-13.0) /HPF Urine Bacteria (Auto) 1+ (Negative) /HPF Hyaline Casts 2 /LPF Urine Mucus Few /HPF Urine Yeast (Budding) 1+ /HPF Urine HCG, Qual Negative (Negative) Vital Signs 09/07/19 09/07/19 09/07/19 13:20 16:59 17:31 Temperature 98.4 F Pulse Rate 97 H 97 H 92 H Respiratory 18 16 Rate Blood Pressure 215/118 215/118 Blood Pressure 193/103 [Left] O2 Sat by Pulse 98 98 Oximetry - Medical Decision Making Patient is a 44-year-old female who presents emergency room with complaints of left eye irritation that began approximately 3 to 4 days ago. She has associated watering, mucus drainage, crusting of the eyelashes. She denies anything getting into the eye. She denies any contact lens use. She denies anyone else with the same symptoms. Patient states that she is also had some mild dysuria for approximately a week and states that she just started using Monistat. She denies any abdominal pain, fever, nausea, vomiting, diarrhea, pelvic pain. She states that she is also had a knot to her right gluteal region that causes discomfort when she sits on it but otherwise has no other complaints, she is ambulatory, no drainage. She states that she is also been out of her blood pressure medication for 2 weeks. She states the pharmacy tried to contact her primary care doctor to receive refills but she has not yet gotten the refill and. She denies any symptoms related to her blood pressure. She states she takes hydralazine 50 mg once a day and amlodipine 10 mg once a day. Vitals with elevated blood pressure secondary to patient not taking her medication, improved upon giving her home medications. on exam: Left conjunctival injection, no periorbital tenderness or edema, extraocular movements intact, no pain with extraocular movements, PERRL, no obvious lump appreciated to the right gluteal region, no abscess, no signs of infection, campus coordinator: NIECY Elena. Examination consistent with conjunctivitis. Will have patient follow-up with orthopedic doctor regarding her gluteal pain, no signs of abscess or infection, could be related to bursitis versus arthritis. UA with white blood cells, leukocyte Estrace, yeast. Patient given prescription for Polytrim eyedrops, Keflex, fluconazole. Patient given a one-month refill of her hypertension medications. Advised patient Please take medication as prescribed. Please follow-up with your primary care doctor. Please follow-up with orthopedic doctor. Please follow-up with director special education. Please take your blood pressure medication as prescribed. Keep a blood pressure log and monitor your blood pressure 3 times a day. Eat a low-sodium diet. Increase your water intake. Incorporate 30 minutes of daily exercise. Return to the emergency room for any new or worsening symptoms Critical care attestation.: If time is entered above; I have spent that time in minutes in the direct care of this critically ill patient, excluding procedure time. ED Disposition Clinical Impression: Yeast infection, Medication refill, Elevated blood pressure reading, Gluteal pain Conjunctivitis Qualifiers: Conjunctivitis type: acute Acute conjunctivitis type: unspecified Laterality: left Qualified Code(s): H10.32 - Unspecified acute conjunctivitis, left eye UTI (urinary tract infection) Qualifiers: Urinary tract infection type: acute cystitis Hematuria presence: without hematuria Qualified Code(s): N30.00 - Acute cystitis without hematuria Disposition: TO HOME OR SELFCARE Is pt being admited?: No Does the pt Need Aspirin: No Condition: Stable Instructions: Urinary Tract Infection in Women (ED), Conjunctivitis (ED), Vulvovaginal Candidiasis (ED), Chronic Hypertension (ED) Additional Instructions: Please take medication as prescribed. Please follow-up with your primary care doctor. Please follow-up with orthopedic doctor. Please follow-up with director special education. Please take your blood pressure medication as prescribed. Keep a blood pressure log and monitor your blood pressure 3 times a day. Eat a low-sodium diet. Increase your water intake. Incorporate 30 minutes of daily exercise. Return to the emergency room for any new or worsening symptoms. Prescriptions: amLODIPine 10 mg PO DAILY #30 tab Fluconazole [Diflucan TAB] 150 mg PO ONCE #1 tablet Hydralazine HCl 50 mg PO DAILY #30 tablet cephALEXin [Keflex] 500 mg PO BID 7 Days #14 cap Polymyxin B Sulf/Trimethoprim [Polytrim Eye Drops [id number]/0.1%] 1 drop OS Q3HR 7 Days #1 drops Referrals: JHON ROBERT MD [Staff Physician] - 3-5 Days [facility] [Provider Group] - 3-5 Days CJ RIVER MD [Staff Physician] - 3-5 Days [facility] [Provider Group] - 3-5 Days [facility] [Outside] - 3-5 Days [facility] [Outside] - 3-5 Days [facility] [Provider Group] - 3-5 Days Time of Disposition: 17:34 Print Language: BARBADIAN
[2019-09-07 17:32] VITALS: BP 193/103
== END 2019-09-07 17:44 | disposition home or self-care (01) ==
LOC: ED 13:19
DX: B37.49 Other urogenital candidiasis (principal); H10.9 Unspecified conjunctivitis; R03.0 Elevated blood-pressure reading, without diagnosis of hypertension; M79.18 Myalgia, other site; I10 Essential (primary) hypertension; E11.9 Type 2 diabetes mellitus without complications; Z76.0 Encounter for issue of repeat prescription; Z98.890 Other specified postprocedural states; Z79.1 Long term (current) use of non-steroidal anti-inflammatories (NSAID); Z79.2 Long term (current) use of antibiotics; Z79.899 Other long term (current) drug therapy; Z88.2 Allergy status to sulfonamides
CPT/HCPCS: 81001; 81025; 87086; 99283